=== PATIENT | male | born 1955 | race Caucasian/White ===

== ENCOUNTER 2018-07-11 08:41 | Outpatient (REF) | payer MEDICAID, SELFPAY ==
[2018-07-11 13:02] LABS: Anion Gap 8.9 mmol/L (3-11); BUN 17 mg/dL (7-18); CO2 29.1 mmol/L (21.0-32.0); CREATININE 1.03 mg/dL (0.70-1.30); Calcium 9.5 mg/dL (8.5-10.1); Chloride 102 mmol/L (98-107); Cholesterol 177 mg/dL (50-200); Glucose 94 mg/dL (70-100); HDL Cholesterol 61 mg/dL (40-60); LDL CHOLESTEROL 104 mg/dL (<100); Potassium 4.3 mmol/L (3.5-5.1); Sodium 140 mmol/L (136-145); Triglyceride 82 mg/dL (30-150)
== END 2018-07-11 09:01 ==
LOC: NCHCN 08:41
PROVIDERS: Visit Provider Nurse Practitioner Family
DX: Z13.228 Encounter for screening for other metabolic disorders (principal); Z13.220 Encounter for screening for lipoid disorders; Z00.00 Encounter for general adult medical examination without abnormal findings
CPT/HCPCS: 80048; 80061; 83721

== ENCOUNTER 2019-07-09 09:41 | Outpatient (CLI) | payer OTHER, SELFPAY ==
[2019-07-09 11:40] LABS: TSH (W/Ref FT4) 3.62 uIU/mL (0.36-3.74); Vitamin B12 187 pg/mL (193-986)
== END 2019-07-09 10:01 ==
PROVIDERS: PCP Nurse Practitioner Family; Visit Provider Psychiatry & Neurology Neurology
DX: G62.9 Polyneuropathy, unspecified (principal); R41.3 Other amnesia
CPT/HCPCS: 36415; 82607; 84443

== ENCOUNTER 2019-07-16 15:48 | Outpatient (CLI) | payer OTHER, SELFPAY ==
[2019-07-27 12:36] LABS: Misc Referral (MAYO) SEE COMMENTS
== END 2019-07-16 16:08 ==
PROVIDERS: PCP Nurse Practitioner Family; Visit Provider Psychiatry & Neurology Neurology
DX: I10 Essential (primary) hypertension (principal); R26.89 Other abnormalities of gait and mobility; G47.00 Insomnia, unspecified; F41.8 Other specified anxiety disorders
CPT/HCPCS: 36415

== ENCOUNTER 2019-10-12 17:01 | Outpatient (REF) | payer OTHER, SELFPAY ==
[2019-10-12 19:17] LABS: HCT 40.1 % (40.0-50.0); HGB 14.2 g/dL (13.5-17.5); Mean Corp. HGB Concentration 35.4 g/dL (32.0-36.0); Mean Corpuscular Hemoglobin 29.7 pg (27.0-33.0); Mean Corpuscular Volume 83.9 fL (80-95); Mean Platelet Volume 11.1 fL (8.0-11.0); Platelet Count 199 x1000/uL (130-400); RBC 4.78 m/cumm (4.50-6.00); RBC Distribution Width 12.5 % (11.8-14.1); White Blood Cell Count 5.16 k/cumm (4.4-10.8)
[2019-10-14 10:08] LABS: HIV-1/2 Ag & Ab Screen Negative (Negative); Hepatitis C Ab w Rflx HCV PCR Negative (Negative)
[2019-10-16 10:08] LABS: Syphilis Serology (RPR) Negative (Negative)
== END 2019-10-12 17:21 ==
LOC: NCHCN 17:01
PROVIDERS: PCP Nurse Practitioner Family; Visit Provider Family Medicine
DX: Z00.00 Encounter for general adult medical examination without abnormal findings (principal); R41.3 Other amnesia; E53.8 Deficiency of other specified B group vitamins; R27.9 Unspecified lack of coordination; Z11.59 Encounter for screening for other viral diseases; Z11.4 Encounter for screening for human immunodeficiency virus [HIV]
CPT/HCPCS: 85027; 86803; 87389; 86592

== ENCOUNTER 2019-11-06 03:49 | Outpatient (CLI) | payer OTHER, SELFPAY ==
--- NOTE | 2019-11-06 | DI.MRI_ITS ---
EXAM: MR BRAIN WO CLINICAL HISTORY: MEMORY IMPAIRMENT,R41.3,BALANCE PROBLEM,R27.9. TECHNIQUE: Multiplanar multisequence MRI was performed. COMPARISON: No exams were available for comparison FINDINGS: MR examination of the brain was performed according to the usual protocol. Note is made of mucoperio steal thickening of the maxillary and ethmoid sinuses with fluid collection or retention cyst in righ t maxillary antrum. There is mild generalized cerebral atrophy. No significant signal abnormality identified in the bra in. The orbital and temporal bone structures appear intact. There is normal flow void in the [place] vasculature. Diffusion-weighted imaging shows no diffusion restriction. Susceptibility weighted imaging shows no evidence of intracranial hemorrhage. IMPRESSION: Mild cerebral atrophy. Examination is otherwise unremarkable. 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 DATA REPOSITORY:
== END 2019-11-06 04:09 ==
PROVIDERS: PCP Family Medicine; Visit Provider Family Medicine
DX: R41.3 Other amnesia (principal); R27.9 Unspecified lack of coordination; G31.89 Other specified degenerative diseases of nervous system
CPT/HCPCS: 70551

== ENCOUNTER 2019-11-09 16:13 | Outpatient (REF) | payer OTHER, SELFPAY ==
[2019-11-10 09:46] LABS: Vitamin B12 500 pg/mL (193-986)
== END 2019-11-09 16:33 ==
LOC: NCHCN 16:13
PROVIDERS: PCP Family Medicine; Visit Provider Family Medicine
DX: E53.8 Deficiency of other specified B group vitamins (principal)
CPT/HCPCS: 82607

== ENCOUNTER 2020-01-30 09:35 | Emergency (ER) | payer OTHER, SELFPAY ==
[2020-01-30 09:38] VITALS: BP 150/105; PULSE 70; RESP 16; TEMP 37; O2SAT 97
--- NOTE | 2020-01-30 09:45 | DI.RAD_ITS ---
EXAM: XR HAND RT COMPLETE CLINICAL HISTORY: index finger vs table saw. TECHNIQUE: 2D digital imaging was performed. COMPARISON: No exams were available for comparison FINDINGS: BONES: There does appear to be an absence of a small portion the dorsal aspect of the terminal tuft a long with the soft tissue amputation. No radiopaque foreign bodies are seen. No other fracture or d islocation is seen JOINTS: No dislocation present. SOFT TISSUE: Please see above IMPRESSION: Amputation of a small portion of the terminal tuft of the distal phalanx of the right index finger. Soft tissue amputation of the distal index finger. DATA REPOSITORY: RADIATION DOSE DELIVERED:
--- NOTE | 2020-01-30 09:54 | W.ED.GENAD ---
Discharge Plan Disposition Patient Disposition: HOME Condition: Stable Discharge Details Chief Complaint: Laceration Clinical Impression: Open fracture of tuft of distal phalanx of finger Primary Care Provider: Cecil Morillo ED Provider: Eben Gardner Home Meds and New Rx's Prescriptions: New cephalexin [Keflex] 500 mg capsule 500 mg PO QID 10 Days Qty: 40 RF: 0 Continued cyanocobalamin (vitamin B-12) 1,000 mcg capsule 1,000 mcg PO DAILY Qty: 90 RF: 3 Discharge Instructions Instructions: Finger Fracture (ED) Additional Instructions: Keflex as directed. Keep the wound clean and dry, leave the initial dressing on for the first 36-48 hours and then change antibiotic dressing daily. Wear splint until reevaluation with orthopedics. Rest, elevate, cool compresses every 2 hours for 20 minutes. Rykw-xbe-rhycies medications as directed for symptomatic control. Please watch for new or worsening symptoms and return to the ER for any concerns. I have given you the name and number of Dr. White, orthopedics, I recommend contacting your office on Saturday for prompt outpatient reevaluation Referrals: Josef White MD [ [facility] ST[facility]FF PHYSICIAN] - Discharge Data Discharge Date/Time-TO BE ENTERED AT DEPARTURE: 01/30/20 10:40 Medical Decision Making 64-year-old gentleman presents with right index finger versus table saw injury. He is left-hand dominant. Will obtain x-ray to rule any bony involvement. Tetanus updated X-ray read by me and confirmed by first radiology as distal phalanx fracture. Wound was thoroughly cleaned and irrigated. As the laceration was an avulsion, there is no tissue to approximate. Patient was placed into a bulky Xeroform and antibiotic dressing, volar finger splint applied. Will provide 10-day prescription for Keflex. Digital block was offered however patient declines as he reports his pain is only mild. He has no additional questions or concerns and is comfortable discharge. We discussed the importance of outpatient orthopedic follow-up, referral given. He was encouraged to return to the ER for new or worsening symptoms. Medical Records Medical records reviewed: Yes I reviewed the patient's medical records. HPI General Mode of arrival: ambulatory. Date/Time Provider Initiated Documentation: 01/30/20 09:42. Limitations to Documentation: no limitations. Information obtained by: patient. HPI Narrative: This is a 64-year-old gentleman with history of hypertension, anxiety, who is left-hand dominant presenting for right index finger injury that he sustained about 45 minutes ago. Finger versus a table saw. Reports mild pain. Denies any other injury. Denies numbness, tingling, weakness. Tetanus status out of date. Related Data Home Medications Medication Instructions Recorded Confirmed cyanocobalamin (vitamin B-12) 1,000 mcg PO DAILY #90 cap 07/10/19 1,000 mcg capsule cephalexin [Keflex] 500 mg PO QID 10 Days #40 cap 01/30/20 Previous Rx's Medication Instructions Recorded cyanocobalamin (vitamin B-12) 1,000 mcg PO DAILY #90 cap 07/10/19 1,000 mcg capsule cephalexin [Keflex] 500 mg PO QID 10 Days #40 cap 01/30/20 Allergies Allergy/AdvReac Type Severity Reaction Status Date / Time acetaminophen [From Tylenol] AdvReac Headache Unverified 01/30/20 09:44 General Stated Complaint: Laceration MEHREEN: 4 Review of Systems Constitutional Constitutional: Denies weakness Musculoskeletal Musculoskeletal: Denies numbness and Denies tingling Neurologic Neurologic: Denies numbness, Denies tingling and Denies weakness Hematologic/Lymphatic Hematologic/Lymphatic: Denies easy bleeding [facility] Medical History Elevated blood pressure reading (Acute) Right knee pain (Acute) 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 Tear of left biceps muscle (Acute) Tear of right biceps muscle (Acute) Surgical History Status post surgery (Acute) R arm sarcoma Family History Mother SCA-3 (spinocerebellar ataxia type 3) Maternal Grandmother SCA-3 (spinocerebellar ataxia type 3) Brother Alcohol abuse Sister Alcohol abuse Father Alcohol abuse Social History Smoking/Tobacco Use Status: Never Alcohol Intake: never Drug use: Never Housing: house Number of Children: 0 Seatbelt use: always Do you feel safe at home: Yes Do you feel safe in your relationship?: Yes Exam Const General: cooperative, healthy appearing, comfortable and no acute distress Orientation: alert and awake HENMT Head: normal to inspection, normocephalic and atraumatic Mouth: moist mucous membranes Eyes Conjunctivae: conjunctivae normal Neck Neck: normal visual inspection, trachea midline and supple Resp Effort & Inspection: normal respiratory effort and able to speak in complete sentences Cardio Rate: regular rate Rhythm: regular rhythm Skin General skin exam: no rashes or lesions noted Neuro General: patient alert, patient awake, moves all extremities and no focal motor deficits Sensory Exam: no sensory deficits noted Extrem Other: Right hand second digit, there is an irregular 1.5 cm avulsion laceration that extends from his distal phalanx to the distal aspect of his nail. No active bleeding. No obvious foreign body. I do not visualize any bony prominence. Neuro, tendon, vascular intact. There is mild diffuse discomfort to palpation Psych Appearance: grossly normal Mental Status: mental status grossly normal Course Vital Signs Vital signs: Vital Signs Temperature 37 C 01/30/20 09:38 Pulse 70 01/30/20 09:38 Respiratory Rate 16 01/30/20 09:38 Blood Pressure 150/105 H 01/30/20 09:38 Pulse Oximetry 97 01/30/20 09:38 Temperature 37 C 01/30/20 09:38 Temperature Source Temporal Artery Scan 01/30/20 09:38 Pulse 70 01/30/20 09:38 Respiratory Rate 16 01/30/20 09:38 Respiratory Effort Non-Labored 01/30/20 09:42 Blood Pressure 150/105 H 01/30/20 09:38 Blood Pressure Position Sitting 01/30/20 09:38 Pulse Oximetry 97 01/30/20 09:38 Oxygen Delivery Method Room Air 01/30/20 09:38 Oxygen Flow Rate 0 01/30/20 09:38 Pain Level 3 01/30/20 09:38
--- NOTE | 2020-01-30 10:07 | DI.VRAD_ITS ---
PROCEDURE INFORMATION: Exam: XR Right Hand Exam date and time: 01/30/2020 9:59 AM Age: 64 years old Clinical indication: Other: Distal index phalanx vs table saw TECHNIQUE: Imaging protocol: XR Right hand. Views: 3 or more views. COMPARISON: No relevant prior studies available. FINDINGS: Bones/joints: The distal aspect of the distal phalanx of the right index finger is absent consistent with the history of saw injury. Soft tissues: There is a defect in the soft tissues distally of the index finger consistent with saw injury. IMPRESSION: 1. The distal aspect of the distal phalanx of the right index finger is absent consistent with the history of saw injury. 2. There is a defect in the soft tissues distally of the index finger consistent with saw injury. Dictated and Authenticated by: Ayanna Fair MD. Ordering:AMADOU Treadwell MD
== END 2020-01-30 10:40 | disposition home or self-care (01) ==
PROVIDERS: Emergency Provider Physician Assistant; PCP Family Medicine
DX: S62.630B Displaced fracture of distal phalanx of right index finger, initial encounter for open fracture (principal); W31.2XXA Contact with powered woodworking and forming machines, initial encounter; I10 Essential (primary) hypertension
CPT/HCPCS: 26750; 90472; 73130

== ENCOUNTER → 2020-02-22 10:37 | Outpatient (REF) | payer OTHER, SELFPAY | LOC: NCHCN 10:37 | PROVIDERS: PCP Family Medicine; Visit Provider Family Medicine | DX: Z00.00 Encounter for general adult medical examination without abnormal findings (principal); Z12.11 Encounter for screening for malignant neoplasm of colon | CPT/HCPCS: 82274 ==

== ENCOUNTER 2020-03-21 16:50 | Outpatient (REF) | payer OTHER, SELFPAY ==
[2020-03-21 20:16] LABS: Vitamin B12 424 pg/mL (193-986)
== END 2020-03-21 17:10 ==
LOC: NCHCN 16:50
PROVIDERS: PCP Family Medicine; Visit Provider Family Medicine
DX: E53.8 Deficiency of other specified B group vitamins (principal)
CPT/HCPCS: 82607

== ENCOUNTER 2020-11-02 17:21 | Outpatient (REF) | payer OTHER, SELFPAY ==
[2020-11-02 20:18] LABS: ALT 34 U/L (16-63); AST 19 U/L (15-37); Albumin 4.4 g/dL (3.4-5.0); Alkaline Phosphatase 66 U/L (46-116); Anion Gap 11.7 mmol/L (3-11); BUN 19 mg/dL (7-18); Bilirubin, Total 0.9 mg/dL (0.2-1.0); CO2 26.3 mmol/L (21.0-32.0); CREATININE 1.2 mg/dL (0.70-1.30); Calcium 9.4 mg/dL (8.5-10.1); Chloride 104 mmol/L (98-107); Glucose 107 mg/dL (74-106); Potassium 3.7 mmol/L (3.5-5.1); Sodium 142 mmol/L (136-145); Vitamin B12 555 pg/mL (193-986)
== END 2020-11-02 17:22 | disposition home or self-care (01) ==
LOC: NCHCN 17:21
PROVIDERS: PCP Family Medicine; Visit Provider Family Medicine
DX: E53.8 Deficiency of other specified B group vitamins (principal); I10 Essential (primary) hypertension
CPT/HCPCS: 80053; 82607

== ENCOUNTER 2021-11-07 18:17 | Outpatient (REF) | payer BC, SELFPAY ==
[2021-11-07 20:05] LABS: Hemoglobin A1C 5.5 % (<5.7)
[2021-11-07 20:15] LABS: CREATININE 1.1 mg/dL (0.70-1.30); TSH (W/Ref FT4) 4.98 uIU/mL (0.36-3.74); Vitamin B12 438 pg/mL (193-986)
[2021-11-07 20:38] LABS: FREE T4 0.74 ng/dL (0.76-1.46)
[2021-11-08 18:04] LABS: PSA, Screening 1.3 ng/mL (<=4.5)
== END 2021-11-07 18:18 | disposition home or self-care (01) ==
LOC: NCHCN 18:17
PROVIDERS: PCP Family Medicine; Visit Provider Family Medicine
DX: E53.8 Deficiency of other specified B group vitamins (principal); R41.3 Other amnesia; R68.89 Other general symptoms and signs; Z00.00 Encounter for general adult medical examination without abnormal findings; Z12.5 Encounter for screening for malignant neoplasm of prostate; Z13.1 Encounter for screening for diabetes mellitus; I10 Essential (primary) hypertension
CPT/HCPCS: 84153; 82565; 82607; 83036; 84439; 84443

== ENCOUNTER 2021-11-13 18:22 | Emergency (ER) | payer BC, SELFPAY ==
[2021-11-13 18:29] VITALS: BP 170/90; PULSE 60; RESP 18; TEMP 36.7; O2SAT 99
--- NOTE | 2021-11-13 18:50 | ED.GENADUL_ITS ---
Discharge Plan Disposition Patient Disposition: HOME Condition: Stable Discharge Details Clinical Impression: Low back pain, Hypertension Primary Care Provider: Cecil Morillo ED Provider: Constantino York Home Meds and New Rx's Prescriptions: No Action cephalexin [Keflex] 500 mg capsule 500 mg PO TID cyanocobalamin (vitamin B-12) 1,000 mcg capsule 1,000 mcg PO DAILY Qty: 90 3RF Discharge Instructions Instructions: Low Back Strain (ED), Hypertension (ED) Additional Instructions: Your blood pressure was elevated today. This has been elevated in the past on prior visits. Please discuss treatment of hypertension with your doctor. Please take ibuprofen over the counter. Take 600mg by mouth every 6 hours as needed for pain. Use lidocaine patches. These are [id number]. Dose according to label. Please contact your primary care physician to arrange follow-up. Return to the ER immediately for any worsening or new concerning symptoms. Stand Alone Forms: Work Release Referrals: Cecil Morillo [Primary Care Provider] - Medical Decision Making 1897 --66-year-old male here with low back pain over the past week, more persistent over the past 2 days. Patient is neurologically intact. He is tender bilateral lumbar paraspinal. Patient has not yet taken anti-inflammatory medication. Plan to treat with lidocaine patch and ibuprofen. 1944 --patient was reassessed and notes feeling better. Plan for outpatient follow-up with PCP. We did discuss his elevated blood pressure today and need to follow-up and discuss with PCP. Disposition decision was made weighing the risks and benefits of hospitalization versus outpatient treatment, the risk for further decompensation, and the patient's wishes. The patient was stable and requested discharge. Prior to discharge, my usual and customary return precautions were reviewed with the patient - this included follow-up instructions and reason to return to the emergency department if condition worsens, does not improve as expected, or other new concerns arise. HPI General Mode of arrival: ambulatory . Date/Time Provider Initiated Documentation: 11/13/21 18:32 . Limitations to Documentation: no limitations . Information obtained by: patient . HPI Narrative: 66-year-old male presents with chief complaint of back pain. Patient notes pain in his that started about a week ago. Pain was initially intermittent and then more constant over the past 2 days. Pain is now moderate to severe. Pain feels like a muscle ache. He has no associated numbness or tingling. No bowel or bladder dysfunction. No fever and no history of IV drug use. Patient notes he believes his pain is related to overuse injury from work. He notes he does a lot of heavy lifting and bending and twisting at work. Related Data Home Medications Medication Instructions Recorded Confirmed cyanocobalamin (vitamin B-12) 1,000 mcg PO DAILY #90 caps 07/10/19 02/10/20 1,000 mcg capsule cephalexin 500 mg capsule (Keflex) 500 mg PO TID 02/10/20 02/10/20 Previous Rx's Medication Instructions Recorded cyanocobalamin (vitamin B-12) 1,000 mcg PO DAILY #90 caps 07/10/19 1,000 mcg capsule Allergies Allergy/AdvReac Type Severity Reaction Status Date / Time acetaminophen [From Tylenol] AdvReac Headache Verified 02/10/20 14:38 General Stated Complaint: Nk/Back Pain MEHREEN: 3 Review of Systems All systems reviewed & are unremarkable except as noted in HPI and below Musculoskeletal Musculoskeletal: Reports as per HPI Neurologic Neurologic: Reports as per HPI PFSH All Active Problems (Updated 11/13/21 @ 19:15 by Constantino Yrok MD) Low back pain (Acute) Hypertension (Chronic) Tear of left biceps muscle (Acute) Memory loss (Acute) Hypertension (Chronic) Depression (Chronic) Anxiety (Chronic) Insomnia (Acute) Imbalance (Acute) Medical History (Updated 11/13/21 @ 19:15 by Constantino York MD) Elevated blood pressure reading Right knee pain 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 Tear of right biceps muscle Surgical History Status post surgery R arm sarcoma Family History Mother SCA-3 (spinocerebellar ataxia type 3) Maternal Grandmother SCA-3 (spinocerebellar ataxia type 3) Brother Alcohol abuse Sister Alcohol abuse Father Alcohol abuse Social History Smoking/Tobacco Use Status: Never Smoking risk assessment performed?: Yes Alcohol Intake: never Drug use: Never Housing: house Number of Children: 0 Current gender identity: male Seatbelt use: always Do you feel safe at home: Yes Do you feel safe in your relationship?: Yes Exam Const General: cooperative HENMT Mouth: moist mucous membranes Eyes Conjunctivae: normal conjunctivae Sclera: normal sclerae Neck Neck: trachea midline and supple Resp Auscultation: clear to auscultation bilaterally, no rales, no rhonchi and no wheezes Cardio Rate: regular rate and not tachycardic Rhythm: regular rhythm GI Palpation: soft, not firm, no guarding, no masses, not rigid and nontender Back/Spine/Pelvis Back: no CVA tenderness Cervical Spine: cervical ROM normal, No cervical spinal tenderness and No step off deformity Thoracic/Lumbar Spine: paraspinal tenderness (Lumbar bilateral), No thoracic spinal tenderness and No lumbar spinal tenderness Skin Rashes: no rashes Neuro General: patient alert, patient awake and tone normal Cognition: normal cognition Motor: other (Strength 5 out of 5 bilateral lower extremities) Sensory Exam: no sensory deficits noted (No saddle anesthesia) Extrem General: no edema Psych Appearance: grossly normal Mental Status: mental status grossly normal Speech and Movement: speech and movement normal Course Vital Signs Vital signs: Vital Signs Temperature 36.7 C 11/13/21 18:29 Pulse 60 11/13/21 18:29 Respiratory Rate 18 11/13/21 18:29 Blood Pressure 170/90 H 11/13/21 18:29 Pulse Oximetry 99 11/13/21 18:29 Temperature 36.7 C 11/13/21 18:29 Temperature Source Temporal Artery Scan 11/13/21 18:29 Pulse 60 11/13/21 18:29 Respiratory Rate 18 11/13/21 18:29 Respiratory Effort Non-Labored 11/13/21 18:33 Blood Pressure 170/90 H 11/13/21 18:29 Blood Pressure Position Sitting 11/13/21 18:29 Pulse Oximetry 99 11/13/21 18:29 Oxygen Delivery Method Room Air 11/13/21 18:29 Oxygen Flow Rate 0 11/13/21 18:29 Pain Level 9 11/13/21 18:29
[2021-11-13] MEDS: Lidocaine 5% Patch 1 PATCH TP (18:54)
[2021-11-13] MEDS: Ibuprofen 600 MG TAB PO (19:00)
[2021-11-13 19:53] VITALS: BP 148/86; PULSE 80; RESP 17; TEMP 36.1; O2SAT 98
== END 2021-11-13 20:00 | disposition home or self-care (01) ==
PROVIDERS: Emergency Provider Student in an Organized Health Care Education/Training Program; PCP Family Medicine
DX: M54.50 Low back pain, unspecified (principal); I10 Essential (primary) hypertension
CPT/HCPCS: 99283

== ENCOUNTER 2021-12-08 17:18 | Outpatient (REF) | payer BC, SELFPAY ==
[2021-12-08 20:00] LABS: TSH (W/Ref FT4) 4.33 uIU/mL (0.36-3.74)
== END 2021-12-08 17:19 | disposition home or self-care (01) ==
LOC: NCHCN 17:18
PROVIDERS: PCP Family Medicine; Visit Provider Family Medicine
DX: R94.6 Abnormal results of thyroid function studies (principal)
CPT/HCPCS: 84439; 84443

== ENCOUNTER 2022-03-26 15:38 | Outpatient (REF) | payer BC, SELFPAY ==
[2022-03-26 19:01] LABS: Vitamin B12 307 pg/mL (193-986)
[2022-03-26 19:29] LABS: Folate > 20.0 ng/mL (8.6-20.0)
== END 2022-03-26 15:39 | disposition home or self-care (01) ==
LOC: NCHCN 15:38
PROVIDERS: PCP Family Medicine; Visit Provider Family Medicine
DX: E53.8 Deficiency of other specified B group vitamins (principal)
CPT/HCPCS: 82607; 82746

== ENCOUNTER 2022-04-24 15:10 | Outpatient (REF) | payer BC, SELFPAY ==
[2022-04-24 19:41] LABS: Abs Immature Grans 0.01 10^3/uL (0.0-0.06); Absolute Basophil Count 0.04 10^3/uL (0.0-0.2); Absolute Eosinophil Count 0.13 10^3/uL (0.0-0.7); Absolute Lymphocyte Count 1.87 10^3/uL (1.2-3.4); Absolute Monocyte Count 0.58 10^3/uL (0.1-0.8); Basophils % 0.7; Eosinophils % 2.2; HCT 38.9 % (40.0-50.0); HGB 13.5 g/dL (13.5-17.5); Immature Grans % 0.2; Lymphocytes % 32.1; MCHC 34.7 % (32.0-36.0); MCV 84 fL (80-95); MPV 10.9 fL (8.0-11.0); Monocytes % 9.9; Neutrophils % 54.9; Platelet Count 203 10^3/uL (130-400); RBC 4.65 10^6/uL (4.36-5.78); RDW 13.1 % (11.8-14.1); RDW-SD 39.6 fL; WBC 5.83 10^3/uL (4.4-10.8)
[2022-04-24 20:26] LABS: ALT 30 U/L (16-63); AST 23 U/L (15-37); Albumin 4.7 g/dL (3.4-5.0); Alkaline Phosphatase 61 U/L (46-116); Anion Gap 8.7 mmol/L (3-11); BUN 14 mg/dL (7-18); Bilirubin, Total 1.4 mg/dL (0.2-1.0); CO2 28.3 mmol/L (21.0-32.0); CREATININE 1.1 mg/dL (0.70-1.30); Calcium 9.8 mg/dL (8.5-10.1); Chloride 104 mmol/L (98-107); Estimated GFR 74.96 (mL/min/1.73m2); Glucose 83 mg/dL (74-106); Sodium 141 mmol/L (136-145); TSH (W/Ref FT4) 3.46 uIU/mL (0.36-3.74); Total Protein 7.4 g/dL (6.4-8.2)
== END 2022-04-24 15:11 | disposition home or self-care (01) ==
LOC: NCHCN 15:10
PROVIDERS: PCP Family Medicine; Visit Provider Family Medicine
DX: R94.6 Abnormal results of thyroid function studies (principal); R68.83 Chills (without fever); I10 Essential (primary) hypertension
CPT/HCPCS: 80053; 84443; 85025

== ENCOUNTER 2022-06-08 07:40 | Inpatient (IN) | payer MEDICAID, SELFPAY ==
[2022-06-08 07:44] VITALS: BP 159/102; PULSE 74; RESP 16; TEMP 36.9; O2SAT 98
--- NOTE | 2022-06-08 07:45 | RT.EKG_ITS ---
APPROVED REPORT Exam: Resting ECG Reason for Exam: [facility] Patient Location: E HR:80 bpm ECG Measurements Heart Rate 80 AXIS SD 171 P 75 QRSd 86 QRS 61 QT 372 T 42 QTc 431 Conclusion Sinus rhythm...normal P axis, V-rate 60- 99 Probable left atrial enlargement...P >50mS, <-0.10mV V1 sinus rhtyhm, normal axis, normal intevals, non ischemic
--- NOTE | 2022-06-08 07:45 | DI.RAD_ITS ---
Exam(s) XR CHEST 1V IN DI DEPT EXAM: XR CHEST 1V IN DI DEPT CLINICAL HISTORY: altered mental status. TECHNIQUE: 2D digital imaging was performed. COMPARISON: No exams were available for comparison FINDINGS: Single AP portable view. Heart size is upper normal. The mediastinum is not widened. Lungs are clear. No infiltrates nor obvious pleural effusions. IMPRESSION: No acute pulmonary findings on this single AP portable view of the chest. DATA REPOSITORY: RADIATION DOSE DELIVERED:
[2022-06-08 07:52] VITALS: RESP 18
--- NOTE | 2022-06-08 07:52 | W.ED.GENAD ---
Discharge Plan Disposition Patient Disposition: Admit to [facility] Condition: Stable Discharge Details Chief Complaint: AMS/LOC Clinical Impression: Altered mental status, Cognitive decline Primary Care Provider: Cecil Morillo ED Provider: Maxime Connors Home Meds and New Rx's Prescriptions: No Action cephalexin [Keflex] 500 mg capsule 500 mg PO TID cyanocobalamin (vitamin B-12) 1,000 mcg capsule 1,000 mcg PO DAILY Qty: 90 3RF Medical Decision Making 66 yr old male, AMS; alert to self, however unsure of time or place; hemodyncamically stable, resting comfortably, non toxic, however globally confused; consider dementia v intracranial mass v bleed v metabolic derangement v less likely post ictal v tox' will obtain basic labs, tox labs, CT brain, ekg, UA; will attempt to reach out to patients primary care team for collatoral; disposition pending reassessment and results 8:28 security footage showing police vehicle stopping at crosswalk outside of hospital, opening door, and patient walking out; our security team is currently reaching out to local police departments to try to obtain further collateral information 8:38 spoke with primary care team, patient has chronic memory issues, currently being evaluated on an outpatient basis; scheduled or MRI brain in June; patient lives alone with his dogs, as a brother. Will continue with medical eval, consider MRI here today; primary care team has been helping to arrange food and heat services to patient home; will have care managment team assess patient for further need 9:44 resting comfortably, no acute distress, labs and imaging largely unremarkable; collateral from PD, patient was confused [place] his [place] is currently located; will obtain MRI to expedite outpatient workup, will need to coordinate safe discharge whether home with family, home health, or admission for rehab/SNF/assisted living placement 13:09 stable; discussed case with care management and hospitalist; will admit for further workup for cognitive decline as well as coordination of placment HPI General Date/Time Provider Initiated Documentation: 06/08/22 07:41. HPI Narrative: 66-year-old male presents found wandering confused outside of the hospital patient endorses that he was waiting for a friend however he is unable to provide any further details regarding where he is from how he got here or who his friend is. Does endorse right sided head pain, denies trauma, however states that he is awaiting MRI of his brain, but unable to explain why. Patient is unsure of his location, or time. He is alert to self. Related Data Home Medications Medication Instructions Recorded Confirmed cyanocobalamin (vitamin B-12) 1,000 mcg PO DAILY #90 caps 07/10/19 02/10/20 1,000 mcg capsule cephalexin 500 mg capsule (Keflex) 500 mg PO TID 02/10/20 02/10/20 Previous Rx's Medication Instructions Recorded cyanocobalamin (vitamin B-12) 1,000 mcg PO DAILY #90 caps 07/10/19 1,000 mcg capsule Allergies Allergy/AdvReac Type Severity Reaction Status Date / Time acetaminophen [From Tylenol] AdvReac Headache Verified 02/10/20 14:38 General Stated Complaint: AMS/LOC MEHREEN: 3 Review of Systems Narrative: ROS: AMS PFSH All Active Problems (Updated 06/08/22 @ 13:11 by Maxime Connors MD) Altered mental status (Acute) Cognitive decline (Acute) Tear of left biceps muscle (Acute) Memory loss (Acute) Hypertension (Chronic) Depression (Chronic) Anxiety (Chronic) Insomnia (Acute) Imbalance (Acute) Medical History (Updated 06/08/22 @ 13:11 by Maxime Connors MD) Elevated blood pressure reading Right knee pain 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 Exam Narrative Exam Narrative: Neuro: alert to self, not alert to time or place; CN 2-12 intact, 5/5 strength upper and lower extremities, ambuatory, no ataxia HEENT: atraumatic normocephalic, PEERL Course Vital Signs Vital signs: Vital Signs Temperature 36.9 C 06/08/22 07:44 Pulse 74 06/08/22 07:44 Respiratory Rate 16 06/08/22 07:44 Blood Pressure 159/102 H 06/08/22 07:44 Pulse Oximetry 98 06/08/22 07:44 Temperature 36.9 C 06/08/22 07:44 Temperature Source Temporal Artery Scan 06/08/22 07:44 Pulse 74 06/08/22 07:44 Respiratory Rate 16 06/08/22 07:44 Blood Pressure 159/102 H 06/08/22 07:44 Blood Pressure Position Sitting 06/08/22 07:44 Pulse Oximetry 98 06/08/22 07:44 Oxygen Delivery Method Room Air 06/08/22 07:44 Oxygen Flow Rate 0 06/08/22 07:44 Pain Level 2 06/08/22 07:44
[2022-06-08 08:35] LABS: Abs Immature Grans 0.01 10^3/uL (0.0-0.06); Absolute Basophil Count 0.01 10^3/uL (0.0-0.2); Absolute Eosinophil Count 0.01 10^3/uL (0.0-0.7); Absolute Lymphocyte Count 0.63 10^3/uL (1.2-3.4); Absolute Monocyte Count 0.23 10^3/uL (0.1-0.8); Absolute Neutrophil Count 2.69 10^3/uL (1.2-6.7); Basophils % 0.3; Eosinophils % 0.3; HCT 44.1 % (40.0-50.0); HGB 15.5 g/dL (13.5-17.5); Immature Grans % 0.3; Lymphocytes % 17.6; MCHC 35.1 % (32.0-36.0); MCV 83 fL (80-95); MPV 10.1 fL (8.0-11.0); Monocytes % 6.4; Neutrophils % 75.1; Platelet Count 259 10^3/uL (130-400); RBC 5.34 10^6/uL (4.36-5.78); RDW 12.4 % (11.8-14.1); RDW-SD 37.2 fL; WBC 3.58 10^3/uL (4.4-10.8)
[2022-06-08 08:37] LABS: Bilirubin Small (Negative); Blood Trace-intact (Negative); Clarity Clear (Clear); Glucose Negative (Negative); Ketones Negative (Negative); Leukocyte Esterase Negative (Negative); Nitrite Negative (Negative); Specific Gravity >= 1.030 (1.005-1.025); pH 6.5 (5-8)
[2022-06-08 08:47] LABS: Salicylate < 2.8 mg/dL (<2.8)
--- NOTE | 2022-06-08 08:48 | DI.CT_ITS ---
Exam(s) CT HEAD WO EXAM: CT HEAD WO CLINICAL HISTORY: altered mental status. TECHNIQUE: Imaging Protocol: Axial computed tomography images with coronal and sagittal reformatted images were created and reviewed COMPARISON: MR MR BRAIN WO from 11/06/2019 FINDINGS: There are no skull fractures. There is opacification of the right maxillary sinus. Nondisplaced fra cture lines are seen in the anterior lateral love of the right maxillary sinus. Milder mucosal thic kening noted in the left maxillary sinus. There is opacification of the right sphenoid sinus and eth moidal air cells bilaterally, right more so than left. Frontal sinuses are clear. Mastoid air cells on left side are hypoplastic when compared to the normal-appearing right side mastoid air cells. z There is no evidence of intracranial hemorrhage, mass effect, or shift of midline structures. There are no extra-axial fluid collections. The ventricles are not enlarged or shifted and there is no blo od within the ventricular system nor within the basal cisterns. IMPRESSION: No acute intracranial findings on this noninfused CT scan of the brain. Paranasal sinus disease as described above. There also appears to have been prior fracture of the ri ght maxillary sinus. Called to ER. RADIATION DOSE DELIVERED: 797.85mGy.cm Total DLP DATA REPOSITORY: All CT scans at this facility are submitted to the National Radiology Data Registry (NRDR) Dose Index Registry (DIR) with the [employer] ([employer]). RADIATION OPTIMIZATION: All CT scans at this facility use at least one of these dose optimization te chniques: automated exposure control; mA and/or kV adjustment per patient size (includes targeted exa ms where dose is matched to clinical indication); or iterative reconstruction.
[2022-06-08 08:52] LABS: Bacteria Few HPF (Negative); C & S Indicated? No; Casts Negative LPF (Negative); Crystals Negative HPF (Negative); Epithelial Cells Rare HPF (Negative); Mucus Heavy (Negative); Other Cells Negative (Negative); RBC 0-2 HPF (0-2); WBC 0-2 HPF (0-5)
[2022-06-08 08:53] LABS: ALT 44 U/L (16-63); AST 31 U/L (15-37); Albumin 4.9 g/dL (3.4-5.0); Alkaline Phosphatase 82 U/L (46-116); Anion Gap 8.7 mmol/L (3-11); BUN 15 mg/dL (7-18); Bilirubin, Total 0.9 mg/dL (0.2-1.0); CO2 28.3 mmol/L (21.0-32.0); Calcium 9.7 mg/dL (8.5-10.1); Chloride 100 mmol/L (98-107); Creatine Kinase 151 U/L (39-308); Estimated GFR 84.05 (mL/min/1.73m2); Glucose 115 mg/dL (74-106); Magnesium 1.8 mg/dL (1.8-2.4); Potassium 3.7 mmol/L (3.5-5.1); Sodium 137 mmol/L (136-145); TSH (W/Ref FT4) 5.44 uIU/mL (0.36-3.74); Total Protein 8.2 g/dL (6.4-8.2); Troponin I < 50 ng/L (<or=60)
[2022-06-08 08:54] LABS: Acetaminophen < 2 ug/mL (10-30)
[2022-06-08 08:56] LABS: ETHANOL BLOOD < 3.0 mg/dL (<10)
[2022-06-08 09:06] LABS: *AMPHETAMINES SCREEN URINE Negative (Negative); *BARBITURATES SCREEN URINE Negative (Negative); *BENZODIAZEPINES SCREEN URINE Negative (Negative); Cannabinoids THC Positive (Negative); Cocaine Screen,Urine Negative (Negative); METHADONE URINE SCREEN Negative (Negative); OPIATES URINE SCREEN Negative (Negative)
[2022-06-08 09:10] LABS: PTT Activated 26.1 sec (21.0-27.5)
[2022-06-08 09:10] LABS: Tricyclic Antidepressants Negative (Negative)
[2022-06-08 09:12] LABS: FREE T4 0.93 ng/dL (0.76-1.46)
--- NOTE | 2022-06-08 09:30 | DI.MRI_ITS ---
Exam(s) MR BRAIN WO EXAM: MR BRAIN WO CLINICAL HISTORY: progression memory loss, AMS TECHNIQUE: Multiplanar multisequence MRI of the brain was performed. COMPARISON: MR MR BRAIN WO from 11/06/2019 FINDINGS: CEREBRAL PARENCHYMA: There is no evidence of intracranial hemorrhage, mass effect, or shift of midline structures. There are no extra-axial fluid collections. Ventricles are not enlarged or shifted. No evidence of cerebe llar tonsillar ectopia. There is no significant acute focal signal abnormality in the cerebellar hemispheres nor within the p ons, midbrain, and thalami. There is some mild relatively symmetrical periventricular signal abnormality consistent with chronic small vessel disease. No evidence of acute territorial infarction. There is no significant focal signal abnormality evident on diffusion imaging to suggest acute ischem ic event. PITUITARY GLAND: The pituitary fossa is a deep. However, there is no pituitary mass nor parasellar a bnormality. No obvious abnormality in the cavernous sinuses. FLOW VOIDS: The expected flow void are noted. No evidence of obvious aneurysm nor obvious vascular ma lformation. PARANASAL SINUSES: There is abundant mucosal thickening and some fluid in the right maxillary sinus c onsistent with sinusitis. Also involves right-sided ethmoidal air cells. Relative sparing of the le ft side although there is some mild mucosal thickening left maxillary sinus. Sphenoid sinuses are cl ear. Frontal sinuses exhibits some mild mucosal thickening but no fluid ORBITS: No obvious findings. IMPRESSION: No significant acute intracranial findings on this noninfused MRI scan of the brain. Mild bilateral periventricular signal abnormality consistent with chronic small vessel disease. Right maxillary sinusitis, also involving right-sided ethmoidal air cells. Other findings findings a s above. Called by myself to ER physician. DATA REPOSITORY:
--- NOTE | 2022-06-08 12:34 | INITIAL_ITS ---
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 Reportedly estranged from family. CURRENT FUNCTIONAL STATUS:: Michael is confused and unable to meaningfully engage at this time. ADVANCE DIRECTIVES:: None on file. Has patient been provided with info about the portal/API?: Yes Did the patient sign up for the portal?: No INSURANCE COVERAGE / FINANCIAL ISSUES:: [place] Medicaid CURRENT HOME/COMMUNITY SERVICES/EQUIPMENT:: None currently; per PCP office Michael is resistant to accepting service connection though they have supported him in securing heat and food at home. PRIMARY CARE PHYSICIAN:: Cecil Morillo POTENTIAL DISCHARGE NEEDS:: Undetermined at this time. PATIENT/FAMILY EDUCATION NEEDS:: Review of discharge instructions, discuss Ask Me Three. ANTICIPATED BARRIERS TO DISCHARGE:: Mental status TRANSPORTATION:: Dependent on mobility and disposition. PLAN:: CM discussed current needs with Michael's brother Rc including determining if there are dogs in the home that are not being attended to, retrieving Michael's car, Michael's current COVID and mental status, etc. CM connected Rc with Lubna Araujo in the event animal control support is needed. Discharge plan dependent on patient status; CM continues to follow.
--- NOTE | 2022-06-08 13:08 | W.PM.HP.N ---
Date of service: 06/08/22 Time of Service: 13:08 Assessment and Plan Assessment and plan (1) Delirium due to another medical condition: Status: Acute Assessment and plan: patient with global confusion, possibly d/t covid infection. testing in ED included routine lab and did include brain MRI after a negative CT use seroquel for symptoms, adjust as needed. (2) COVID-19: Status: Acute Assessment and plan: no oxygen requirements or cough. found on routine admission swabbing. possibly causing his acute delirium will treat with remdesivir. no steroid indicated at this time. (3) Depression: Status: Chronic (4) Hypertension: Status: Chronic Assessment and plan: blood pressure controlled, continue amlodipine. discussed with DR Navarro History of Present Illness History of Present Illness Chief Complaint: confusion Narrative: This is a 66 year old male who was found wondering on the hospital grounds. He was unsure of why he was here or how he got here. he was directed to the ED for evaluation. He had and extended ED visit and extensive testing which was all unremarkable but found to be covid positive. his record was reviewed and case discussed with his outpatient cell liner who recently prescribed abilify and aricept for him, she suspects he is not taking them. review of his chart also shows that his pcp prescribed geodon in Mar 2022, he is unable to tell me if he is taking it and his MOLD SHAKER was not aware that he had that prescribed. She discussed how there has been concern by outpatient team regarding his ability to care for himself and that they were hoping he would agree to [facility] admission for stabilization but he has not been agreeable. It is also noted that he was evaluated in Jun 2019 for cognitive impairment and that there is a family history of Mauro's disease in both his sister and mother. it was not felt that his presentation was consistent with that diagnosis. plan was for a brain MRI which does not appear like he followed through with. His brain MRI today was consistent with small vessel disease but no other findings to explain his delirium. Review of Systems Unobtainable due to mental status (delirious state) [facility] All Active Problems (Updated 06/08/22 @ 15:35 by Joselyn Kenyon, FIGUEROA) COVID-19 (Acute) Delirium due to another medical condition (Acute) Altered mental status (Acute) Cognitive decline (Acute) Tear of left biceps muscle (Acute) Memory loss (Acute) Hypertension (Chronic) Depression (Chronic) Anxiety (Chronic) Insomnia (Acute) Imbalance (Acute) Medical History (Updated 06/08/22 @ 15:35 by Joselyn Kenyon NP) Elevated blood pressure reading Right knee pain 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 Meds Allergies and Home Medications Allergies Allergy/AdvReac Type Severity Reaction Status Date / Time acetaminophen [From Tylenol] AdvReac Headache Verified 06/08/22 14:21 Home Medications Medication Instructions Recorded Confirmed Type amlodipine 2.5 mg tablet 1 tab PO DAILY 06/08/22 06/08/22 History Exam Const General: no acute distress and frail appearing Nutritional Appearance: thin Orientation: alert, awake, oriented to person and confused (unable to tell me why he is here and where in [facility] he is. ) [facility] Head: normal to inspection, normocephalic and atraumatic Resp Effort & Inspection: normal respiratory effort Auscultation: clear to auscultation bilaterally Cardio Rate: regular rate Rhythm: regular rhythm GI Inspection: normal to inspection Palpation: soft Auscultation: normal bowel sounds Skin General skin exam: no rashes or lesions noted Neuro General: patient alert, patient awake, gait normal, tone normal, moves all extremities, no focal motor deficits and patient confused (global) Cognition: abnormal cognition Speech: speech normal Gait: normal gait Motor: muscle tone normal throughout Extrem General: normal to inspection, full ROM and no pedal edema Results Labs Result diagrams: 06/08/22 08:20 06/08/22 08:20 Labs: Laboratory Results - last 24 hr 06/08/22 06/08/22 06/08/22 08:10 08:10 08:20 WBC RBC Hgb Hct MCV MCH MCHC RDW Plt Count MPV Immature Gran % Neutrophils % Lymphocytes % Monocytes % Eosinophils % Basophils % Nucleated RBC % Absolute Neutrophils Absolute Lymphocytes Absolute Monocytes Absolute Eosinophils Absolute Basophils PT INR APTT Sodium 137 Potassium 3.7 Chloride 100 Carbon Dioxide 28.3 Anion Gap 8.7 BUN 15 Creatinine 1.0 Est GFR (CKD-EPI 2020) 84.05 Glucose 115 H Calcium 9.7 Magnesium 1.8 Total Bilirubin 0.9 AST 31 ALT 44 Alkaline Phosphatase 82 Creatine Kinase 151 Troponin I < 50 Total Protein 8.2 Albumin 4.9 TSH 5.44 H Free T4 0.93 Urine Color Yellow Urine Clarity Clear Urine pH 6.5 Ur Specific [place] >= 1.030 H Urine Protein 30 H Urine Ketones Negative Urine Blood Trace-intact H Urine Nitrite Negative Urine Bilirubin Small H Urine Urobilinogen 1.0 H Ur Leukocyte Esterase Negative Urine RBC 0-2 Urine WBC 0-2 Ur Epithelial Cells Rare Urine Crystals Negative Urine Bacteria Few Urine Casts Negative Urine Mucus Heavy Urine Other Negative Ur Culture Indicated? No Urine Glucose Negative Salicylates Urine Opiates Screen Negative Urine Methadone Screen Negative Acetaminophen Ur Barbiturates Screen Negative Ur Tricyclics Screen Negative Ur Amphetamines Screen Negative U Benzodiazepines Scrn Negative Urine Cocaine Screen Negative Ur THC Screen Positive A Ethyl Alcohol < 3.0 06/08/22 06/08/22 06/08/22 08:20 08:20 08:20 WBC 3.58 L RBC 5.34 Hgb 15.5 Hct 44.1 MCV 83 MCH 29.0 MCHC 35.1 RDW 12.4 Plt Count 259 MPV 10.1 Immature Gran % 0.3 Neutrophils % 75.1 Lymphocytes % 17.6 Monocytes % 6.4 Eosinophils % 0.3 Basophils % 0.3 Nucleated RBC % 0.0 Absolute Neutrophils 2.69 Absolute Lymphocytes 0.63 L Absolute Monocytes 0.23 Absolute Eosinophils 0.01 Absolute Basophils 0.01 PT 10.0 INR 1.0 APTT 26.1 Sodium Potassium Chloride Carbon Dioxide Anion Gap BUN Creatinine Est GFR (CKD-EPI 2020) Glucose Calcium Magnesium Total Bilirubin AST ALT Alkaline Phosphatase Creatine Kinase Troponin I Total Protein Albumin TSH Free T4 Urine Color Urine Clarity Urine pH Ur Specific [place] Urine Protein Urine Ketones Urine Blood Urine Nitrite Urine Bilirubin Urine Urobilinogen Ur Leukocyte Esterase Urine RBC Urine WBC Ur Epithelial Cells Urine Crystals Urine Bacteria Urine Casts Urine Mucus Urine Other Ur Culture Indicated? Urine Glucose Salicylates < 2.8 Urine Opiates Screen Urine Methadone Screen Acetaminophen < 2 Ur Barbiturates Screen Ur Tricyclics Screen Ur Amphetamines Screen U Benzodiazepines Scrn Urine Cocaine Screen Ur THC Screen Ethyl Alcohol Last Vital Signs Temp 36.9 C 06/08/22 07:44 Pulse 74 06/08/22 07:44 Resp 18 06/08/22 07:52 BP 159/102 H 06/08/22 07:44 Pulse Ox 98 06/08/22 07:44
[2022-06-08 13:52] VITALS: BP 142/75; PULSE 82; RESP 18; O2SAT 97
[2022-06-08 14:26] LABS: Source Nasal/Nares
[2022-06-08 14:54] LABS: COVID-19 PCR POSITIVE (Negative)
[2022-06-08 15:12] VITALS: BP 134/81; PULSE 85; RESP 17; TEMP 37.1; O2SAT 96
[2022-06-08] MEDS: QUEtiapine 25 MG TAB PO (16:00)
[2022-06-08 16:51] LABS: Vitamin B12 661 pg/mL (193-986)
[2022-06-08] MEDS: REMDESIVIR 200 MG in Normal Saline 250 ML 250 MG IVPB (17:10)
[2022-06-08] MEDS: Normal Saline Flush 10 ML SYR (17:13)
[2022-06-08] MEDS: QUEtiapine 25 MG TAB 50 MG PO (18:44)
--- NOTE | 2022-06-08 18:44 | NUR.NOTE ---
Nursing Note: patient has gotten increasingly confused, and has attempted to leave the covid area twice this evening, He is difficult to redirect at times, but staff have managed to this point to keep him safely in his room. He has removed two IV access, with the second after only 3/4 of a bag of redemsivir had infused. Provider aware, and he will be switched to Paxlovir
--- NOTE | 2022-06-08 20:54 | NUR.NOTE ---
Derick Margret Pats brother arrived to take care of the dogs. phone number [phone]. [place] given to him to take care of the Dogs that are at home in kennels. Nursing Note:
[2022-06-09] MEDS: QUEtiapine 25 MG TAB PO ×2 (05:24→15:27)
[2022-06-09 09:06] VITALS: BP 121/62; PULSE 68; RESP 18; TEMP 37.2; O2SAT 100
--- NOTE | 2022-06-09 14:20 | W.PM.PROGNOT ---
Date of Service Date of service: 06/09/22 Time of Service: 14:21 Assessment and Plan Assessment and plan (1) Delirium due to another medical condition: Status: Acute Assessment and plan: patient with global confusion, possibly d/t covid infection. improved today. testing in ED included routine lab and did include brain MRI after a negative CT agreeable to use seroquel, adjust as needed. neurology consulted (2) COVID-19: Status: Acute Assessment and plan: no oxygen requirements or cough. found on routine admission swabbing. possibly causing his acute delirium will treat with remdesivir, agreeable today to restart. no steroid indicated at this time. (3) Depression: Status: Chronic (4) Hypertension: Status: Chronic Assessment and plan: blood pressure controlled, continue amlodipine. discussed with DR Navarro Subjective Subjective Patient reports: no new complaints, feels better, tolerating liquids well, tolerating a regular diet and afebrile; denies shortness of breath Exam Const General: no acute distress and frail appearing Nutritional Appearance: thin Orientation: alert, awake, oriented to person and confused (unable to tell me why he is here and where [place]. ) [facility] Head: normal to inspection, normocephalic and atraumatic Resp Effort & Inspection: normal respiratory effort Auscultation: clear to auscultation bilaterally Cardio Rate: regular rate Rhythm: regular rhythm GI Inspection: normal to inspection Palpation: soft Auscultation: normal bowel sounds Skin General skin exam: no rashes or lesions noted Neuro General: patient alert, patient awake, gait normal, tone normal, moves all extremities, no focal motor deficits and patient confused (global) Cognition: abnormal cognition Speech: speech normal Gait: normal gait Motor: muscle tone normal throughout Extrem General: normal to inspection, full ROM and no pedal edema Objective Last Vital Signs Temp 37.2 C 06/09/22 09:06 Pulse 68 06/09/22 09:06 Resp 18 06/09/22 09:06 BP 121/62 06/09/22 09:06 Pulse Ox 100 06/09/22 09:06 Laboratory Results - last 24 hr 06/08/22 06/08/22 08:20 14:20 Vitamin B12 661 COVID-19 Source Nasal/Nares SARS-CoV-2 (PCR) POSITIVE A*
[2022-06-09] MEDS: REMDESIVIR 100 MG in Normal Saline 250 ML 250 MG IVPB (15:27)
[2022-06-09 15:55] VITALS: BP 133/79; PULSE 61; RESP 18; TEMP 37.4; O2SAT 99
[2022-06-09] MEDS: QUEtiapine 25 MG TAB 50 MG PO (20:00)
[2022-06-09 23:04] VITALS: BP 130/79; PULSE 61; RESP 18; TEMP 36.7; O2SAT 99
[2022-06-10 06:32] VITALS: BP 135/82; PULSE 55; RESP 20; TEMP 36.7; O2SAT 100
[2022-06-10] MEDS: QUEtiapine 25 MG TAB 50 MG PO ×2 (08:33→19:21)
[2022-06-10] MEDS: Normal Saline Flush 10 ML SYR (14:47)
[2022-06-10] MEDS: REMDESIVIR 100 MG in Normal Saline 250 ML 250 MG IVPB (14:47)
[2022-06-10 15:31] VITALS: BP 134/73; PULSE 63; RESP 16; TEMP 36.9; O2SAT 99
--- NOTE | 2022-06-10 15:48 | PGE_ITS ---
Date of Service Date of service: 06/10/22 Time of Service: 15:48 Assessment and Plan Assessment and plan (1) Delirium due to another medical condition: Status: Acute Assessment and plan: patient with global confusion, possibly d/t covid infection. improved today. testing in ED included routine lab and did include brain MRI after a negative CT agreeable to use seroquel, adjust as needed. neurology consulted (2) COVID-19: Status: Acute Assessment and plan: no oxygen requirements or cough. found on routine admission swabbing. possibly causing his acute delirium continue remdesivir day 08/26 (3) Depression: Status: Chronic (4) Hypertension: Status: Chronic Assessment and plan: blood pressure controlled, continue amlodipine. discussed with DR Navarro Subjective Subjective Patient reports: no new complaints, voiding w/o difficulty, diarrhea (one episode) and afebrile; denies shortness of breath Interval history since last seen: eating and drinking well, no behavioral issues Exam Const General: no acute distress and frail appearing Nutritional Appearance: thin Orientation: alert, awake and oriented to person [facility] Head: normal to inspection, normocephalic and atraumatic Resp Effort & Inspection: normal respiratory effort Auscultation: clear to auscultation bilaterally Cardio Rate: regular rate Rhythm: regular rhythm GI Inspection: normal to inspection Palpation: soft Auscultation: normal bowel sounds Skin General skin exam: no rashes or lesions noted Neuro General: patient alert, patient awake, patient oriented x3, gait normal, tone normal, moves all extremities and no focal motor deficits Speech: speech normal Gait: normal gait Motor: muscle tone normal throughout Extrem General: normal to inspection, full ROM and no pedal edema Psych Appearance: grossly normal Mental Status: mental status grossly normal Speech and Movement: speech and movement normal Mood: congruent mood Affect: normal affect Attitude: cooperative Objective Last Vital Signs Temp 36.9 C 06/10/22 15:31 Pulse 63 06/10/22 15:31 Resp 16 06/10/22 15:31 BP 134/73 06/10/22 15:31 Pulse Ox 99 06/10/22 15:31
[2022-06-10] MEDS: Ibuprofen 600 MG TAB PO (19:22)
[2022-06-10] MEDS: Normal Saline Flush 10 ML SYR IVP (19:23)
[2022-06-10 23:50] VITALS: BP 135/75; PULSE 63; RESP 16; TEMP 36.7; O2SAT 99
[2022-06-11 02:57] VITALS: BP 141/75; PULSE 58; RESP 19; TEMP 36.4; O2SAT 99
[2022-06-11 07:46] VITALS: BP 131/74; PULSE 55; RESP 12; TEMP 36.1; O2SAT 98
[2022-06-11] MEDS: QUEtiapine 25 MG TAB 50 MG PO ×2 (07:49→20:52)
[2022-06-11] MEDS: Normal Saline Flush 10 ML SYR IVP ×2 (07:50→14:42)
--- NOTE | 2022-06-11 09:42 | W.PM.PROGNOT ---
Date of Service Date of service: 06/11/22 Time of Service: 09:42 Assessment and Plan Assessment and plan (1) Delirium due to another medical condition: Status: Acute Assessment and plan: patient with global confusion, possibly d/t covid infection. improved past 2 days testing in ED included routine lab and did include brain MRI after a negative CT agreeable to use seroquel, adjust as needed. neurology consulted - not seen today (2) COVID-19: Status: Acute Assessment and plan: no oxygen requirements or cough. found on routine admission swabbing. possibly causing his acute delirium continue remdesivir day 09/26 (3) Depression: Status: Chronic (4) Hypertension: Status: Chronic Assessment and plan: blood pressure controlled, continue amlodipine. discussed with Dr Michaud Subjective Subjective Patient reports: no new complaints, voiding w/o difficulty and afebrile; denies diarrhea, nausea or vomiting Exam Const General: no acute distress and frail appearing Nutritional Appearance: thin Orientation: alert, awake and oriented to person HENTX Head: normal to inspection, normocephalic and atraumatic Resp Effort & Inspection: normal respiratory effort Auscultation: clear to auscultation bilaterally Cardio Rate: regular rate Rhythm: regular rhythm GI Inspection: normal to inspection Palpation: soft Auscultation: normal bowel sounds Skin General skin exam: no rashes or lesions noted Neuro General: patient alert, patient awake, patient oriented x3, gait normal, tone normal, moves all extremities and no focal motor deficits Speech: speech normal Gait: normal gait Motor: muscle tone normal throughout Extrem General: normal to inspection, full ROM and no pedal edema Psych Appearance: grossly normal Mental Status: mental status grossly normal Speech and Movement: speech and movement normal Mood: congruent mood Affect: normal affect Attitude: cooperative Objective Last Vital Signs Temp 36.1 C L 06/11/22 07:46 Pulse 55 L 06/11/22 07:46 Resp 12 06/11/22 07:46 BP 131/74 06/11/22 07:46 Pulse Ox 98 06/11/22 07:46
--- NOTE | 2022-06-11 10:06 | PDOC.CMPRO ---
- If Service Date Differs Date of service: 06/11/22 Time of Service: 10:06 Care Management Progress Note S/O: CM spoke with Michael via phone since he is on covid precautions. He is pleasant and easy to engage in conversation. Michael is on day #3 of IV Remdisivir treatment. Pts brother Rafita advises CM today that he lives in [facility]. and is more than willing to drive up here to help support Michael when he is medically ready for discharge. Anticipate, Michael may be medically ready to discharge tomorrow after his last remdisivir treatment. Rafita is requesting a medical update from the Hospitalist, JAYRO notified Ping. [address] JAYRO spoke with Keily Barbra from [facility]. She personally follows Mcihael closely in the community and reports that he is well connected with food and heat resources. A: 66 year old male admitted to [facility] on 06/08/22 for AMS P: Anticipate, Michael may be medically ready to discharge tomorrow after his last remdisivir treatment. Per Rafita, Michael's neighbor Lisandra is caring for his 3 dogs during this admission and his car is sitting in his driveway. Rafita will arrange transportation home. JAYRO continues to follow.
[2022-06-11 14:29] VITALS: BP 124/73; PULSE 63; RESP 17; TEMP 37.1; O2SAT 98
[2022-06-11] MEDS: REMDESIVIR 100 MG in Normal Saline 250 ML 250 MG IVPB (14:41)
[2022-06-11] MEDS: Ibuprofen 600 MG TAB PO ×2 (14:42→20:51)
[2022-06-11 23:35] VITALS: BP 120/73; PULSE 74; RESP 16; TEMP 37.1; O2SAT 98
[2022-06-12 06:18] LABS: Abs Immature Grans 0.02 10^3/uL (0.0-0.06); Absolute Basophil Count 0.03 10^3/uL (0.0-0.2); Absolute Lymphocyte Count 1.61 10^3/uL (1.2-3.4); Absolute Monocyte Count 0.46 10^3/uL (0.1-0.8); Absolute Neutrophil Count 2.48 10^3/uL (1.2-6.7); Basophils % 0.7; HCT 39.5 % (40.0-50.0); HGB 13.2 g/dL (13.5-17.5); Immature Grans % 0.4; MCH 28.6 pg (27.0-33.0); MCHC 33.4 % (32.0-36.0); MCV 86 fL (80-95); MPV 10.4 fL (8.0-11.0); Neutrophils % 53.9; Platelet Count 216 10^3/uL (130-400); RBC 4.61 10^6/uL (4.36-5.78); RDW 12.4 % (11.8-14.1); RDW-SD 38.5 fL
[2022-06-12 06:29] LABS: Anion Gap 5.1 mmol/L (3-11); BUN 27 mg/dL (7-18); CO2 29.9 mmol/L (21.0-32.0); CREATININE 1.1 mg/dL (0.70-1.30); Calcium 9.1 mg/dL (8.5-10.1); Chloride 106 mmol/L (98-107); Estimated GFR 74.96 (mL/min/1.73m2); Glucose 93 mg/dL (74-106); Magnesium 1.9 mg/dL (1.8-2.4); Potassium 4.6 mmol/L (3.5-5.1); Sodium 141 mmol/L (136-145)
[2022-06-12 06:36] VITALS: BP 132/77; PULSE 51; RESP 16; TEMP 36; O2SAT 99
[2022-06-12] MEDS: amLODIPine 2.5 MG TAB PO (08:24)
[2022-06-12] MEDS: QUEtiapine 25 MG TAB 50 MG PO (08:24)
[2022-06-12] MEDS: Normal Saline Flush 10 ML SYR IVP (08:25)
--- NOTE | 2022-06-12 12:46 | CMDISCH_ITS ---
- If Service Date Differs Date of service: 06/12/22 Time of Service: 12:46 LACE Index Scoring Tool - Questions: Length of Stay (in days): 4 - 6 Acuity (Admit via E.D.?): Yes E.D. Visits: 2 - Answers: Total Score: 9 Risk of Readmission: Low Risk Care Management Discharge Reason for Hospitalization: AMS Discharge Plan: Michael is discharged home via private vehicle with his brother Berto. New [facility] RN/MUSIC EDUCATION ADJUNCT PROFESSOR services are ordered. New RX is transmitted to [facility]. Michael will follow up with discharge plan of care and community providers as scheduled. ANSELMO/Keily at Dr. Morillo's office has been assisting Michael with his community needs. [facility] is notified of discharge. Patient/Family Education Needs: Review discharge instructions, limitations, medications and plan to follow up with community providers. Review ask me three and goals of self care. Services Needed at Discharge: Home Health Care Services (New H RN and MUSIC EDUCATION ADJUNCT PROFESSOR. CM notified [facility].)
[2022-06-12] MEDS: REMDESIVIR 100 MG in Normal Saline 250 ML 250 MG IVPB (14:16)
[2022-06-12 14:45] VITALS: BP 132/80; PULSE 64; RESP 16; TEMP 37; O2SAT 97
--- NOTE | 2022-06-12 15:05 | DSE_ITS ---
Date of service: 06/12/22 Time of Service: 15:17 DS: Diagnosis Discharge Diagnosis (1) COVID-19: Status: Acute Asessment and Plan: No oxygen requirement (2) Depression: Status: Chronic Asessment and Plan: Chronic - see's baker paint and is prescribed medications by her - he does not take any medications she has prescribed. (3) Hypertension: Status: Chronic Asessment and Plan: Continue Amlodipine Discharge Plan Disposition Patient Disposition: Home W/Home Health Services Condition: Fair Discharge Details Reason For Visit: Altered Mental Status Admit Date/Time: 06/08/22 14:15 Admit Provider: Lorelei Navarro Attending Provider: Lorelei Navarro Primary Care Provider: Cecil Morillo [facility] Course Hospital Course: This is a 66-year-old male who was found wondering on the hospital grounds.? He was unsure of why he was here or how he got here.? He was directed to the ED for evaluation.? He had an extended ED visit and extensive testing which was all unremarkable but incidentally found to be Covid positive.? His record was reviewed and case discussed with his outpatient probation and patrol agent who recently prescribed Abilify and Aricept for him, she suspects he is not taking them.?Review of his chart also showed his PCP prescribed Geodon in Mar 2022.? He is not taking any of these medications. His PNP discussed how there is concern by his outpatient team regarding his ability to care for himself and that they were hoping he would agree to [facility] admission for stabilization but he has not been agreeable.? He continues to not be agreeable. It is also noted that he was evaluated in Jun 2019 for cognitive impairment and that there is a family history of Mauro's disease in both his sister and mother.? It was not felt that his presentation this visit was consistent with that diagnosis.? Plan then, was for a brain MRI which does not appear he followed through with.? 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 He was treated with Remdesivir.? He has no oxygen requirement. He was agreeable to starting Seroquel and quickly improved.? He was seen by Neurology in June 2019, he told the provider then he was started on Lexapro at some point and did not like how that made him feel, he did not continue taking it.? He complained of having difficulty falling and staying asleep, and gets around 5 hours of sleep per night. He has reported memory loss that began about 2 years ago. With his permission we have spoken to his brother and his brother will pick him up, he is coming from [place]. His brother is concerned that he will not take his medications, agreed and home health has been ordered.? He is also concerned that he lives in deplorable conditions and has no heat, although does have a wood stove and also has wood.? Patient is not willing to go to rehab or [facility] [place], he is competent to make his own decisions.? He does know where he is and why he is here.? He requests to go home. He did receive a full course of Remdesivir. He is being discharged to home, stable. He is encouraged to follow up with PCP and PNP. Discussed with Dr Michaud Home Meds and New Rx's Prescriptions: New quetiapine 25 mg Tablet 50 mg PO BID Qty: 120 0RF Continued amlodipine 2.5 mg tablet 1 tab PO DAILY Label Comments: TAKE 1 TABLET BY MOUTH EVERY DAY. STOP LISINOPRIL Discharge Instructions Instructions: Amlodipine (By mouth), Quetiapine (By mouth) Additional Instructions: Home Health will call you to arrange a time to come to your house. Stand Alone Forms: Nursing Discharge Form Referrals: Alejandrina Mckinnon PMP- [Other] (Follow up 1-2 weeks. Please call to make a follow up appointment.) Cecil Morillo [Primary Care Provider] - 06/20/22 2:10 pm Activity:: Activity as Tolerated Equipment/Supplies:: No Equipment Needed Diet:: As Tolerated Discharge Orders Discharge Orders: Discharge Order (Routine); Ordered 06/12/22 Ordered By: Ping Enrique Discharge Data Discharge Date/Time-TO BE ENTERED AT DEPARTURE: 06/12/22 16:29 DS: Summary Time Spent with Patient providing and/or coordinating discharge services: Greater than 30 minutes Status at Discharge Functional status at discharge: independent ambulation Overall status at discharge: patient is progressing back to baseline Mental Status: mental status grossly normal Speech and Movement: speech and movement normal Mood: congruent mood Affect: normal affect Exam Narrative Exam Narrative: Constitutional: Alert and oriented x3. Appears stated age. Normal body habitus. Head: Normocephalic, no trauma. Eyes: Pupils PERRL, Red reflex noted, EOM's intact. Eyelids symmetrical without lesions, discharge, or swelling. Chest: RRR, Normal S1, S2, distal pulses intact. Resp: Lungs clear to auscultation bilaterally, no wheezes, rales, or rhonchi. Abdomen: Soft, non-distended, negative Moore sign, right CVA tenderness with palpation. Musculoskeletal: Normal gait, 5/5 strength to all four extremities. Skin: No suspicious rashes or lesions. Capillary refill less than 2 sec. Neurologic: Cranial nerves II-XII intact. Alert and oriented x 3. Motor: No deficits noted. Sensory: Intact bilaterally all 4 extremities. Hematologic/Lymphatic: No ecchymosis, no lymphadenopathy. Psych Mental Status: mental status grossly normal Speech and Movement: speech and movement normal Mood: congruent mood Affect: normal affect DS: Data Vitals/I&O Vitals and I&O: Vital Signs Temperature 37.0 C 06/12/22 14:45 Temperature Source Tympanic 06/12/22 14:45 Pulse 64 06/12/22 14:45 Pulse Rhythm Regular 06/12/22 08:00 Respiratory Rate 16 06/12/22 14:45 Respiratory Effort 06/12/22 08:00 Respiratory Depth Normal 06/12/22 08:00 Respiratory Pattern Normal 06/12/22 08:00 Blood Pressure 132/80 06/12/22 14:45 Blood Pressure Position Sitting 06/08/22 07:44 Pulse Oximetry 97 06/12/22 14:45 Oxygen Delivery Method Room Air 06/12/22 14:45 Oxygen Flow Rate 0 06/12/22 14:45 Pain Level 0 06/12/22 14:45 Comment 06/11/22 14:29 Intake & Output 06/11/22 06/12/22 06/12/22 23:59 11:59 23:59 Intake Total 471 / 591 240 / 240 Balance 471 / 591 240 / 240 Intake: IV 250 / 250 Oral 221 / 341 240 / 240 Other: Comment up independently to the toilet pT uses the bathroom independently. pT voids in toilet. Goes to the bathroom independently. Voiding Methods Toilet Toilet Toilet Data Completed and Pending Labs on day of discharge: Labs from last 24 hours 06/12/22 06/12/22 06:01 06:01 WBC 4.60 RBC 4.61 Hgb 13.2 L Hct 39.5 L MCV 86 MCH 28.6 MCHC 33.4 RDW 12.4 Plt Count 216 MPV 10.4 Immature Gran % 0.4 Neutrophils % 53.9 Lymphocytes % 35.0 Monocytes % 10.0 Eosinophils % 0.0 Basophils % 0.7 Nucleated RBC % 0.0 Absolute Neutrophils 2.48 Absolute Lymphocytes 1.61 Absolute Monocytes 0.46 Absolute Eosinophils 0.00 Absolute Basophils 0.03 Sodium 141 Potassium 4.6 Chloride 106 Carbon Dioxide 29.9 Anion Gap 5.1 BUN 27 H Creatinine 1.1 Est GFR (CKD-EPI 2020) 74.96 Glucose 93 Calcium 9.1 Magnesium 1.9 PFSH All Active Problems (Updated 06/08/22 @ 15:35 by Joselyn Kenyon NP) COVID-19 (Acute) Delirium due to another medical condition (Acute) Altered mental status (Acute) Cognitive decline (Acute) Tear of left biceps muscle (Acute) Memory loss (Acute) Hypertension (Chronic) Depression (Chronic) Anxiety (Chronic) Insomnia (Acute) Imbalance (Acute) Medical History (Updated 06/08/22 @ 15:35 by Joselyn Kenyon NP) Elevated blood pressure reading Right knee pain 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
--- NOTE | 2022-06-12 16:04 | PDOC.HHF2F ---
Home Health Referral Home Health Orders Clinical synopsis of why skilled professionals are needed: This is a 66-year-old male who was found wondering on the hospital grounds.? He was unsure of why he was here or how he got here.? He was directed to the ED for evaluation.? He had an extended ED visit and extensive testing which was all unremarkable but incidentally found to be Covid positive.? His record was reviewed and case discussed with his outpatient health promotion manager who recently prescribed Abilify and Aricept for him, she suspects he is not taking them.?Review of his chart also showed his PCP prescribed Geodon in Mar 2022.? He is not taking any of these medications. His PNP discussed how there is concern by his outpatient team regarding his ability to care for himself and that they were hoping he would agree to [facility] admission for stabilization but he has not been agreeable.? He continues to not be agreeable. It is also noted that he was evaluated in Jun 2019 for cognitive impairment and that there is a family history of Mauro's disease in both his sister and mother.? It was not felt that his presentation this visit was consistent with that diagnosis.? Plan then, was for a brain MRI which does not appear he followed through with.? 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 He was treated with Remdesivir.? He has no oxygen requirement. He was agreeable to starting Seroquel and quickly improved.? He was seen by Neurology in June 2019, he told the provider then he was started on Lexapro at some point and did not like how that made him feel, he did not continue taking it.? He complained of having difficulty falling and staying asleep, and gets around 5 hours of sleep per night. He has reported memory loss that began about 2 years ago. With his permission we have spoken to his brother and his brother will pick him up, he is coming from [place]. His brother is concerned that he will not take his medications, agreed and home health has been ordered.? He is also concerned that he lives in deplorable conditions and has no heat, although does have a wood stove and also has wood.? Patient is not willing to go to rehab or [facility], he is competent to make his own decisions.? He does know where he is and why he is here.? He requests to go home. He did receive a full course of Remdesivir. He is being discharged to home, stable. Medical diagnosis necessitation home health referral: Delirium Registered Nurse: Check all that apply Instruct on new or changed medication(s)/assess compliance: Ordered (History of not taking prescribed medications; Quetiapine is a new medication; Amlodipine is not new, however he has not been taking it. ) Assess for exacerbation of medical condition, instruct patient/caregivers on signs and symptoms to report for early detection: Ordered Physical Therapist: Check all that apply Increase strength & endurance for safe mobility at home: Ordered To design/establish home maintenance program: Ordered Fall reduction therapy program for patient with history of frequent falls: Ordered Home safety evaluation and teaching/gait training including stair management (if applicable): Ordered Occupational Therapist: Evaluate and treat for patient unable to perform ADL/IADL/self-care: Ordered Upper extremity strengthening, range and motion: Ordered Armor Reconnaissance Vehicle Crewman: Assist with community resources: Ordered Assist with correction care planning: Ordered Home Bound Status Assistance of another person (Describe assistance and medical necessity): Recent delirium, lives alone, does not take medications safely, if at all. Encounter Date and Reason: I certify that a FTF encounter for this patient was performed on June 12, 2022 and that such encounter was related to the primary reason the patient requires home health services. The encounter was conducted in the following manner: By me as the certifying physician, WEATHERIZATION ADMINISTRATOR, PA or By an inpatient physician, WEATHERIZATION ADMINISTRATOR or PA during an inpatient stay who communicated findings to me, Certification And Authentication I certify that I composed the above information based on my clinical judgment relating to this patient's medical condition and, if applicable, clinical findings communicated to me by the NPP or inpatient physician who performed the FTF encounter. Name of Provider that will be monitoring home health services: Cecil Morillo
== END 2022-06-12 16:29 | disposition home health service (06) | DRG 178 ==
LOC: ER 13:41 → MS 06-09 08:18
PROVIDERS: Nurse Practitioner Acute Care; Nurse Practitioner Family; Admitting Provider Internal Medicine; Emergency Provider Emergency Medicine; PCP Family Medicine; Visit Provider Internal Medicine
DX: U07.1 COVID-19 (principal); F05 Delirium due to known physiological condition; F32.A Depression, unspecified; I10 Essential (primary) hypertension; F41.9 Anxiety disorder, unspecified; G47.00 Insomnia, unspecified; R41.3 Other amnesia
CPT/HCPCS: 36415; 36416; 80048; 80053; 80307; 82550; 82962; 87635; 93005; 99285; 70450; 70551; 71045; 80320; 80329; 81003; 81015; 82607; 83735; 84439; 84443; 84484; 85025; 85610; 85730; 93010; 99222; 99232; 99233; 99239; J0248